=== PATIENT | male | born 1950 | race Caucasian/White ===

== ENCOUNTER 2019-01-31 07:42 | Observation (INO) | payer MEDICARE, OTHER ==
[2019-01-31 08:01] LABS: CHLORIDE,CL 101 mEq/L (98-106); SODIUM,NA 138 mEq/L (136-145)
[2019-01-31] MEDS: Albuterol/Ipratropium 3.0-0.5 MG/3 ML Neb Soln NEB SCH ×3 (11:33→19:39)
[2019-01-31] MEDS ORDERED: Sodium Chloride 0.9% 10 ML Syringe FLUSH PRN (12:25)
[2019-01-31] MEDS ORDERED: Temazepam 15 MG Cap PO PRN (12:25)
[2019-01-31] MEDS ORDERED: Ibuprofen 200 MG Tab PO PRN (12:25)
[2019-01-31] MEDS ORDERED: Acetaminophen 325 MG Tab PO PRN (12:25)
[2019-01-31] MEDS ORDERED: Nitroglycerin 0.4 MG Tab.SL SL PRN (12:27)
[2019-01-31] MEDS: Clindamycin Phosphate in D5W 300 MG in Premix Bag 1 BAG IV SCH ×4 (13:51→19:39)
[2019-01-31] MEDS ORDERED: methylPREDNISolone Sodium Succinate 125 MG/2 ML SDV IVPUSH SCH (14:00)
[2019-01-31] MEDS ORDERED: Enoxaparin 40 MG/0.4 ML Syringe SUBCUT SCH (14:00)
[2019-02-01] MEDS: Clindamycin Phosphate in D5W 300 MG in Premix Bag 1 BAG IV SCH ×4 (02:45→07:29)
[2019-02-01] MEDS: Albuterol/Ipratropium 3.0-0.5 MG/3 ML Neb Soln NEB SCH (07:29)
[2019-02-01 07:30] LABS: CHLORIDE,CL 101 mEq/L (98-106); SODIUM,NA 137 mEq/L (136-145)
[2019-02-01] MEDS ORDERED: **PTOM** Lisinopril 10 MG Tab PO SCH (08:00)
[2019-02-01] MEDS ORDERED: TURMERIC 1 GM MC SCH (08:00)
[2019-02-01] MEDS ORDERED: Aspirin 81 MG Tab.EC PO SCH (08:00)
--- NOTE | 2019-02-01 22:43 | PCM.DCSUM1 ---
Discharge Summary - Hospital Course Free Text/Narrative:: Patient presented to clinic with concerns of possible pneumonia. Had been eating corn on the cob and started coughing on a "corn kernel", felt aspirated it. Notes more shortness of breath, weakness, and increased cough. States cough is especially more prevalent when lying on right side. Does have history of COPD. Recent PFTs indicate severe, has refused treatment for this up to now. Has chest tightness, orthopnea. Chest xray and labs essentially negative. Due to tachycardia, oxygen sat at 89%, admitted for IV antibiotics, steroids and and nebs due to concerns of aspiration. Diagnosis: Stroke: No Modified Nelson Scale: No Symptoms at All Modified Nelson Scale Score: 0 - Discharge Data Discharge Date: 02/01/19 Discharge Disposition: Home, Self-Care 01 Condition: Good - Patient Summary/Data Complications: none Hospital Course: Patient doing well this am. States breathing much easier, oxygen sat greater than 90% on room air. Minimal cough this am. Up and ambulating this am without shortness of breath. Afebrile. Eating well. lung sounds diminished but clear. Labs this am are stable, wBC 9.8, hemoglobin 17.5, CRP normal. Will discharge home on Clindamycin. - Patient Instructions Diet: Usual Diet as Tolerated Activity: As Tolerated - Discharge Plan *PRESCRIPTION DRUG MONITORING PROGRAM REVIEWED*: No *COPY OF PRESCRIPTION DRUG MONITORING REPORT IN PATIENT KRISTI: No Prescriptions/Med Rec: Clindamycin HCl 300 mg PO QID #40 capsule Home Medications: Home Meds Aspirin [Halfprin] 81 mg PO DAILY 11/19/17 [History] Lisinopril 10 mg PO DAILY 11/19/17 [History] Nitroglycerin 0.4 mg SL ASDIRECTED PRN 11/19/17 [History] Turmeric [Curcumin] 2 gm MC DAILY 11/29/18 [History] Clindamycin HCl 300 mg PO QID #40 capsule 02/01/19 [Rx] Patient Handouts: Pneumonitis Referrals: Jonnathan Hu MD [ED Physician] - (Follow up with Dr. Hu in 10 days ) - Discharge Summary/Plan Comment DC Time >30 min.: No - General Info Date of Service: 02/01/19 Admission Dx/Problem (Free Text: Pneumonitis Functional Status: Reports: Pain Controlled, Tolerating Diet, Ambulating - Review of Systems General: Denies: Fever, Weakness, Fatigue, Malaise HEENT: Reports: Rhinitis. Denies: Ear Pain, Sinus Congestion Pulmonary: Reports: Cough. Denies: Shortness of Breath, Wheezing Cardiovascular: Denies: Chest Pain, Edema, Lightheadedness Gastrointestinal: Denies: Abdominal Pain, Nausea, Vomiting Genitourinary: Reports: No Symptoms Musculoskeletal: Reports: No Symptoms Skin: Reports: No Symptoms Neurological: Reports: No Symptoms - Patient Data Vitals - Most Recent: Last Vital Signs Temp 96.2 F 02/01/19 08:00 Pulse 69 02/01/19 08:00 Resp 16 02/01/19 08:00 BP 148/87 H 02/01/19 08:00 Pulse Ox 94 L 02/01/19 08:00 Weight - Most Recent: 225 lb 3.2 oz I&O - Last 24 hours: Intake & Output 02/01/19 02/01/19 02/01/19 06:59 14:59 22:59 Intake Total 50 Balance 50 Lab Results - Last 24 hrs: Laboratory Results - last 24 hr 02/01/19 02/01/19 Range/Units 06:45 06:45 WBC 9.8 (5.0-10.0) 10^3/uL RBC 5.73 (4.50-6.00) 10^6/uL Hgb 17.5 (14.0-18.0) g/dL Hct 52.5 (40.0-54.0) % MCV 91.6 (82.0-94.0) fL MCH 30.5 (27.0-32.0) pg MCHC 33.3 (33.0-38.0) g/dL RDW Coeff of Shiva 15.6 H (11.0-15.0) % Plt Count 242 (150-400) 10^3/uL Neut % (Auto) 83.7 (35-85) % Lymph % (Auto) 9.0 L (10-55) % Ness % (Auto) 7.2 (0-16) % Eos % (Auto) 0 (0-5) % Baso % (Auto) 0.1 (0-3) % Neut # (Auto) 8.20 H (1.80-7.00) 10^3/uL Lymph # (Auto) 0.88 L (1.00-4.80) 10^3/uL Ness # (Auto) 0.71 (0.00-0.80) 10^3/uL Eos # (Auto) 0.00 (0.00-0.45) 10^3/uL Baso # (Auto) 0.01 10^3/uL Sodium 137 (136-145) mEq/L Potassium 4.3 (3.5-5.0) mEq/L Chloride 101 (98-106) mEq/L Carbon Dioxide 31 (21-32) mmol/L BUN 16 (7-18) mg/dL Creatinine 1.1 (0.7-1.3) mg/dL Est Cr Clr Drug Dosing 63.91 mL/min Estimated GFR (MDRD) > 60 (>=60) mL/min Glucose 128 H (75-99) mg/dL Calcium 8.9 (8.4-10.1) mg/dL C-Reactive Protein 0.8 (0.2-0.8) mg/dL Med Orders - Current: Current Medications Discontinued Medications Acetaminophen (Tylenol) 650 mg PO Q4H PRN PRN Reason: Pain (Mild 1-3)/fever Albuterol/Ipratropium (Duoneb 3.0-0.5 Mg/3 Ml) 3 ml NEB QIDRT [facility] Last Admin: 02/01/19 07:29 Dose: 3 ml Aspirin (Halfprin) 81 mg PO DAILY [facility] Last Admin: 02/01/19 07:29 Dose: 81 mg Enoxaparin Sodium (Lovenox) 40 mg SUBCUT Q24H [facility] Last Admin: 01/31/19 13:46 Dose: 40 mg Clindamycin Phosphate 300 mg/ (Premix) 50 mls @ 100 mls/hr IV Q6H [facility] Last Admin: 02/01/19 07:29 Dose: 100 mls/hr Ibuprofen (Motrin) 400 mg PO Q6H PRN PRN Reason: Pain (mild 1-3) Lisinopril (Prinivil) 10 mg PO DAILY [facility] Last Admin: 02/01/19 07:30 Dose: 10 mg Methylprednisolone Sodium Succinate (Solu-Medrol) 62.5 mg IVPUSH Q24H [facility] Last Admin: 01/31/19 13:47 Dose: 62.5 mg Nitroglycerin (Nitrostat) 0.4 mg SL ASDIRECTED PRN PRN Reason: Chest Pain Ptom Turmeric [ (Curcumin] 1 Gm Caps) 2 gm MC DAILY [facility] Last Admin: 02/01/19 07:30 Dose: 2 gm Sodium Chloride (Saline Flush) 10 ml FLUSH ASDIRECTED PRN PRN Reason: Keep Vein Open Temazepam (Restoril) 15 mg PO BEDTIME PRN PRN Reason: Sleep - Exam General: Reports: Alert, Oriented HEENT: Reports: Mucous Membr. Moist/[place] Neck: Reports: Supple Lungs: Reports: Clear to Auscultation, Normal Respiratory Effort Cardiovascular: Reports: Regular Rate, Regular Rhythm GI/Abdominal Exam: Normal Bowel Sounds, Soft, Non-Tender Extremities: Normal Inspection, No Pedal Edema Skin: Reports: Warm, Dry Neurological: Reports: No New Focal Deficit
== END 2019-02-01 09:40 | disposition home or self-care (01) ==
LOC: CC.MS 07:42 → CC.FCMC 07:42 → CC.MS 08:39 → UNDOADMOB 08:39 → CC.MS 12:04
PROVIDERS: ADMIT Nurse Practitioner Family; ATTEND Family Medicine
DX: J69.0 Pneumonitis due to inhalation of food and vomit (principal); J44.9 Chronic obstructive pulmonary disease, unspecified; Z79.82 Long term (current) use of aspirin; Z79.899 Other long term (current) drug therapy
CPT/HCPCS: 36415; 71046; 80048; 85025; 86140; 93005; 94640; 96365; 96366; 96372; 96375; 96376; 99217; 99219; A9270-GY; G0378; J1650; J2930; J3490; J7620-GY

== ENCOUNTER 2020-02-26 08:50 | Observation (INO) | payer MEDICARE, OTHER ==
[2020-02-26] MEDS ORDERED: Albuterol/Ipratropium 3.0-0.5 MG/3 ML Neb Soln NEB PRN (09:28)
[2020-02-26] MEDS ORDERED: Sodium Chloride 0.9% 10 ML Syringe FLUSH PRN (09:28)
[2020-02-26] MEDS ORDERED: Ibuprofen 200 MG Tab PO PRN (09:28)
[2020-02-26] MEDS ORDERED: Acetaminophen 325 MG Tab PO PRN (09:28)
[2020-02-26] MEDS ORDERED: Docusate Sodium 100 MG Cap PO PRN (09:28)
[2020-02-26] MEDS ORDERED: Levofloxacin/Dextrose 5%-Water 500 MG in Premix Bag 1 BAG IV SCH (09:30)
[2020-02-26] MEDS ORDERED: Enoxaparin 30 MG/0.3 ML Syringe SUBCUT SCH (09:30)
[2020-02-26 10:14] LABS: CHLORIDE,CL 100 mEq/L (98-106); SODIUM,NA 138 mEq/L (136-145)
[2020-02-26] MEDS: methylPREDNISolone Sodium Succinate 125 MG/2 ML SDV IVPUSH SCH ×2 (11:01→20:39)
[2020-02-26] MEDS ORDERED: Nitroglycerin 0.4 MG Tab.SL SL PRN (14:57)
[2020-02-27] MEDS ORDERED: Aspirin 81 MG Tab.EC PO SCH (08:00)
[2020-02-27] MEDS ORDERED: Lisinopril 10 MG Tab PO SCH (08:00)
--- NOTE | 2020-02-27 08:16 | PCM.DCSUM1 ---
Discharge Summary - Hospital Course Free Text/Narrative:: Jonnathan is a 69 year old male who presented to clinic to see Anand with concerns of aspiration. States he had swallowed a pea wrong at supper the night prior and when he awoke in the am, had more shortness of breath and a cough. Had similar incident the year prior when eating corn. Patient admits that unable to lie down without coughing "spell". Does have history of COPD. Oxygen sats in the clinic were 88% on room air in clinic. Lung sounds noted to have scattered rhonchi throughout. Admitted and started on IV antibiotics and steroids. Diagnosis: Stroke: No Modified [place] Scale: No Symptoms at All Modified [place] Scale Score: 0 - Discharge Data Discharge Date: 02/27/20 Discharge Disposition: Home, Self-Care 01 Condition: Good - Referral to Home Health Primary Care Physician: Jonnathan Hu MD - Discharge Diagnosis/Problem(s) (1) Aspiration pneumonia SNOMED Code(s): 390453930 ICD Code: J69.0 - PNEUMONITIS DUE TO INHALATION OF FOOD AND VOMIT Status: Acute Priority: High - Patient Summary/Data Complications: none Hospital Course: Patient is doing well this am. Has not had any issues with swallowing/eating. Oxygen sats have remained in the 93-95% on room air. Lung sounds are clear this am. Has been up and ambulating in halls without shortness of breath. Labs were essentially normal on admit, WBC 6.5. CRP negative. WBC this am is elevated at 15, likely related to IV steroids as CRP remains negative. Chest xray is n ormal. Will discharge home on Levaquin, prednisone. Continue nebulizer treatments. follow up with PCP in 10 days. - Patient Instructions Diet: Usual Diet as Tolerated Activity: As Tolerated - Discharge Plan *PRESCRIPTION DRUG MONITORING PROGRAM REVIEWED*: No *COPY OF PRESCRIPTION DRUG MONITORING REPORT IN PATIENT KRISTI: No Prescriptions/Med Rec: Albuterol/Ipratropium [DuoNeb 3.0-0.5 MG/3 ML] 3 ml NEB Q4H PRN #30 neb PRN Reason: Shortness Of Breath/wheezing Levofloxacin [Levaquin] 500 mg PO DAILY #7 tablet predniSONE [Prednisone] 40 mg PO DAILY #4 tablet Home Medications: Home Meds Aspirin [Halfprin] 81 mg PO DAILY 11/19/17 [History] Lisinopril 10 mg PO DAILY 11/19/17 [History] Nitroglycerin 0.4 mg SL ASDIRECTED PRN 11/19/17 [History] Cannabidiol (Cbd) Extract [CBD Oil] 1 drop PO DAILY 02/26/20 [History] Albuterol/Ipratropium [DuoNeb 3.0-0.5 MG/3 ML] 3 ml NEB Q4H PRN #30 neb 02/27/20 [Rx] Levofloxacin [Levaquin] 500 mg PO DAILY #7 tablet 02/27/20 [Rx] predniSONE [Prednisone] 40 mg PO DAILY #4 tablet 02/27/20 [Rx] - Discharge Summary/Plan Comment DC Time >30 min.: No - General Info Date of Service: 02/27/20 Admission Dx/Problem (Free Text: Aspiration Pneumonia Functional Status: Reports: Pain Controlled, Tolerating Diet, Ambulating - Review of Systems General: Reports: Malaise. Denies: Fever, Weakness, Fatigue HEENT: Reports: No Symptoms. Denies: Headaches, Sore Throat, Rhinitis Pulmonary: Reports: Cough. Denies: Shortness of Breath Cardiovascular: Denies: Chest Pain, Edema, Lightheadedness Gastrointestinal: Denies: Abdominal Pain, Nausea, Vomiting Genitourinary: Reports: No Symptoms Musculoskeletal: Reports: No Symptoms Skin: Reports: No Symptoms Neurological: Reports: No Symptoms - Patient Data Vitals - Most Recent: Last Vital Signs Temp 98.4 F 02/27/20 07:28 Pulse 94 02/27/20 07:28 Resp 18 02/27/20 07:28 BP 133/83 02/27/20 07:28 Pulse Ox 95 02/27/20 07:28 Weight - Most Recent: 222 lb 12.8 oz Lab Results - Last 24 hrs: Laboratory Results - last 24 hr 02/26/20 02/26/20 02/26/20 Range/Units 09:43 09:43 09:43 WBC 6.5 (5.0-10.0) 10^3/uL RBC 5.86 (4.50-6.00) 10^6/uL Hgb 18.0 (14.0-18.0) g/dL Hct 54.5 H (40.0-54.0) % MCV 93.0 (82.0-94.0) fL MCH 30.7 (27.0-32.0) pg MCHC 33.0 (33.0-38.0) g/dL RDW Coeff of Shiva 16.0 H (11.0-15.0) % Plt Count 239 (150-400) 10^3/uL Neut % (Auto) 73.5 (35-85) % Lymph % (Auto) 15.6 (10-55) % [place] % (Auto) 9.2 (0-16) % Eos % (Auto) 1.1 (0-5) % Baso % (Auto) 0.6 (0-3) % Neut # (Auto) 4.77 (1.80-7.00) 10^3/uL Lymph # (Auto) 1.01 (1.00-4.80) 10^3/uL [place] # (Auto) 0.60 (0.00-0.80) 10^3/uL Eos # (Auto) 0.07 (0.00-0.45) 10^3/uL Baso # (Auto) 0.04 10^3/uL Sodium 138 (136-145) mEq/L Potassium 4.6 (3.5-5.0) mEq/L Chloride 100 (98-106) mEq/L Carbon Dioxide 32 (21-32) mmol/L BUN 18 (7-18) mg/dL Creatinine 1.1 (0.7-1.3) mg/dL Est Cr Clr Drug Dosing TNP Estimated GFR (MDRD) > 60 (>=60) mL/min Glucose 113 H (75-99) mg/dL Lactic Acid 1.4 (0.4-2.0) mmol/L Calcium 9.0 (8.4-10.1) mg/dL Total Bilirubin 0.6 (0.0-1.0) mg/dL AST 13 L (15-37) U/L ALT 28 (12-78) U/L Alkaline Phosphatase 91 (46-116) U/L C-Reactive Protein < 0.2 L (0.2-0.8) mg/dL Total Protein 7.9 (6.4-8.2) g/dL Albumin 3.9 (3.4-5.0) g/dL 02/27/20 02/27/20 Range/Units 07:00 07:00 WBC 15.0 H (5.0-10.0) 10^3/uL RBC 5.91 (4.50-6.00) 10^6/uL Hgb 18.4 H* (14.0-18.0) g/dL Hct 55.0 H (40.0-54.0) % MCV 93.1 (82.0-94.0) fL MCH 31.1 (27.0-32.0) pg MCHC 33.5 (33.0-38.0) g/dL RDW Coeff of Shiva 16.2 H (11.0-15.0) % Plt Count 258 (150-400) 10^3/uL Neut % (Auto) 91.0 H (35-85) % Lymph % (Auto) 5.4 L (10-55) % [place] % (Auto) 3.4 (0-16) % Eos % (Auto) 0.1 (0-5) % Baso % (Auto) 0.1 (0-3) % Neut # (Auto) 13.67 H (1.80-7.00) 10^3/uL Lymph # (Auto) 0.81 L (1.00-4.80) 10^3/uL [place] # (Auto) 0.51 (0.00-0.80) 10^3/uL Eos # (Auto) 0.01 (0.00-0.45) 10^3/uL Baso # (Auto) 0.01 10^3/uL Sodium (136-145) mEq/L Potassium (3.5-5.0) mEq/L Chloride (98-106) mEq/L Carbon Dioxide (21-32) mmol/L BUN (7-18) mg/dL Creatinine (0.7-1.3) mg/dL Est Cr Clr Drug Dosing Estimated GFR (MDRD) (>=60) mL/min Glucose (75-99) mg/dL Lactic Acid (0.4-2.0) mmol/L Calcium (8.4-10.1) mg/dL Total Bilirubin (0.0-1.0) mg/dL AST (15-37) U/L ALT (12-78) U/L Alkaline Phosphatase (46-116) U/L C-Reactive Protein < 0.2 L (0.2-0.8) mg/dL Total Protein (6.4-8.2) g/dL Albumin (3.4-5.0) g/dL Med Orders - Current: Current Medications Acetaminophen (Tylenol) 650 mg PO Q4H PRN PRN Reason: Pain (Mild 1-3)/fever Albuterol/Ipratropium (Duoneb 3.0-0.5 Mg/3 Ml) 3 ml NEB Q4H PRN PRN Reason: Shortness Of Breath/wheezing Last Admin: 02/26/20 20:41 Dose: 3 ml Documented by: Aspirin (Halfprin) 81 mg PO DAILY [facility] Last Admin: 02/27/20 07:29 Dose: 81 mg Documented by: Docusate Sodium (Colace) 100 mg PO BID PRN PRN Reason: Constipation Levofloxacin/Dextrose 500 mg/ (Premix) 100 mls @ 100 mls/hr IV Q24H [facility] Last Admin: 02/26/20 11:02 Dose: 100 mls/hr Documented by: Ibuprofen (Motrin) 400 mg PO Q6H PRN PRN Reason: Pain (mild 1-3) Lisinopril (Prinivil) 10 mg PO DAILY [facility] Methylprednisolone Sodium Succinate (Solu-Medrol) 62.5 mg IVPUSH Q12H [facility] Last Admin: 02/26/20 20:39 Dose: 62.5 mg Documented by: Nitroglycerin (Nitrostat) 0.4 mg SL ASDIRECTED PRN PRN Reason: Chest Pain Sodium Chloride (Saline Flush) 10 ml FLUSH ASDIRECTED PRN PRN Reason: Keep Vein Open Discontinued Medications Enoxaparin Sodium (Lovenox) 30 mg SUBCUT Q24H [facility] Last Admin: 02/26/20 17:51 Dose: Not Given Documented by: - Exam General: Reports: Alert, Oriented HEENT: Reports: Mucous Membr. Moist/[place] Neck: Reports: Supple Lungs: Reports: Clear to Auscultation, Normal Respiratory Effort Cardiovascular: Reports: Regular Rate, Regular Rhythm GI/Abdominal Exam: Normal Bowel Sounds, Soft, Non-Tender Extremities: Normal Inspection, No Pedal Edema Skin: Reports: Warm, Dry Neurological: Reports: No New Focal Deficit
== END 2020-02-27 09:30 | disposition home or self-care (01) ==
LOC: CC.MS 08:50 → UNDOADMOB 08:50 → CC.MS 09:28
PROVIDERS: ADMIT Physician Assistant Medical; ATTEND Family Medicine
DX: J69.0 Pneumonitis due to inhalation of food and vomit (principal); J44.9 Chronic obstructive pulmonary disease, unspecified; I10 Essential (primary) hypertension; E78.00 Pure hypercholesterolemia, unspecified; I25.10 Atherosclerotic heart disease of native coronary artery without angina pectoris; N40.1 Benign prostatic hyperplasia with lower urinary tract symptoms; R35.1 Nocturia; Z79.899 Other long term (current) drug therapy; Z79.82 Long term (current) use of aspirin; Z87.891 Personal history of nicotine dependence
CPT/HCPCS: 36415; 71046; 80053; 83605; 85025; 86140; 94640; 96365; 96375; 96376; A9270-GY; G0378; J1956; J2930; J7620-GY